=== PATIENT | male | born 1975 ===

== ENCOUNTER 2024-06-28 07:00 | Day surgery (SDC) | payer BC ==
[2024-06-27 12:19] LABS: Absolute Basophils 0.1 K/uL (0-0.5); Absolute Eosinophils 0.1 K/uL (0-0.5); Absolute Lymphocytes (CBC) 2.2 K/uL (0.7-4.9); Absolute Neutrophil 7.9 K/uL (1.8-8.0); Basophils % 0.6 % (0-1.3); Eosinophils % 1.3 % (0-4.4); Hematocrit 47.1 % (39.6-49.0); Hemoglobin 15.7 g/dL (13.6-17.9); Lymphocytes % 19.2 % (15.3-44.8); MCH 28.5 pg (27.0-35.0); MCHC 33.5 g/dL (32.0-36.0); MCV 85.3 fL (80-100); Monocytes % 8.6 % (3.3-12.3); Neutrophils % 70.3 % (41.7-73.7); Platelets 225 thou/uL (152-406); RBC Red Blood Cell Count 5.52 M/uL (4.33-5.43); Red Cell Distribution Width 14.2 % (12.1-15.2)
[2024-06-27 12:33] LABS: PTT, Activated Partial Thromb 29.7 SECONDS (24.3-36.9); Protime INR 1.07
--- NOTE | 2024-06-27 13:39 | RAD REPORT ---
EXAMINATION: ONE VIEW CHEST XR CLINICAL INDICATION: Male, 49 years old.,CCL PREOP. Hypertension TECHNIQUE: Frontal chest projection is submitted. Examination is limited by patient positioning and t echnique. COMPARISON: No prior exam. FINDINGS: The lungs are well inflated and clear. No pneumothorax or sizable effusion. The heart is normal in s ize. Mediastinal contours are unremarkable. IMPRESSION: No suspicious intrathoracic abnormalities.
[2024-06-28] MEDS ORDERED: NA CHLORIDE 0.9% 500 ML ONE (07:01)
[2024-06-28] MEDS ORDERED: HEPARIN 10,000 UNIT/10 ML VIAL IV ONE (07:18)
[2024-06-28] MEDS ORDERED: HEPA 1000U/500MLS 2,000 UNIT/1,000 ML BAG IV ONE (07:18)
[2024-06-28] MEDS ORDERED: MIDAZOLAM HCL 2 MG/2 ML INJ ONE (07:18)
[2024-06-28] MEDS ORDERED: ATROPINE SULF 1 MG/10 ML SYR IV ONE (07:18)
[2024-06-28] MEDS ORDERED: LIDOCAINE 1% 20 ML MDV ONE (07:18)
[2024-06-28] MEDS ORDERED: CLOPIDOGREL 75 MG TABLET ONE (07:19)
[2024-06-28] MEDS ORDERED: HEPARIN 5000 UNIT/ML 1 ML VIAL ONE (07:19)
[2024-06-28] MEDS ORDERED: ASPIRIN 325 MG TAB ONE (07:20)
[2024-06-28] MEDS ORDERED: TICAGRELOR 90 MG TABLET PO ONE (07:20)
[2024-06-28] MEDS ORDERED: FENTANYL CITR 100 MCG/2 ML ONE (07:20)
[2024-06-28 07:21] VITALS: TEMP 98.3
--- NOTE | 2024-06-28 09:48 | OP ---
Date of Procedure: 06/28/2024 Surgeon: Elder Mabry Procedures Performed: 1.Left heart catheterization. 2.Selective coronary angiogram. Indication For Procedure: Shortness of breath, abnormal stress test. Complications: None. Estimated Blood Loss: Less than 50 cc. Access: Right radial, closed by TR band. Sedation Time: 20 minutes with 1 of Versed and 50 of fentanyl. Description Of Procedure: After risks, benefits, and alternatives were explained to the patient, the patient agreed to proceed with procedure and signed informed consent. The patient was brought back to the electrical laboratory technician, prepped and draped in sterile fashion. Time-out was performed. Sedation was admini stered. Next, right radial access was obtained. [place] 4 catheter was advanced over the J-wire to th e LV cavity. LVEDP was obtained. Pullback did not show any gradient. Same catheter was used for se lective angiogram of the left and right coronary systems. At the end of procedure, catheter was seda claudette over a J-wire. Sheath was removed. TR band applied. Hemostasis achieved. The patient was move d back to recovery in stable condition. Findings: 1.Left main: Normal. 2.LAD: Normal. 3.Left circ: Normal. 4.RCA: Normal. 5.LVEDP 7 mmHg. Assessment And Plan: 1.Normal coronaries. 2.Normal filling pressures. Plan will be to continue medical management. RACHEAL Voice ID: [id number] Report ID: [id number]
[2024-06-28 09:58] VITALS: BP 103/66; O2SAT 93
--- NOTE | 2024-06-28 14:50 | EKG ---
Test Date: 2024-06-27 Test Time: 12:28:16 Manager Training And Development: DEMI MEASUREMENT RESULTS: Intervals: Rate: 59 [place]: 210 QRSD: 96 QT: 416 QTc: 411 [place]: P: 23 [place]: 210 QRS: -8 T: 16 INTERPRETIVE STATEMENTS: Sinus bradycardia with 1st degree AV block Otherwise normal ECG Compared to ECG 11/11/2016 17:36:02 No significant changes Electronically Signed On 06-28-24 14:46:28 CDT by Virgilio Holland
== END 2024-06-28 10:13 | disposition home or self-care (01) ==
LOC: CCL 07:00
PROVIDERS: ATTEND Internal Medicine Interventional Cardiology
DX: R94.39 Abnormal result of other cardiovascular function study (principal); R06.02 Shortness of breath; I10 Essential (primary) hypertension; I49.3 Ventricular premature depolarization; Z79.82 Long term (current) use of aspirin; Z79.899 Other long term (current) drug therapy
CPT/HCPCS: 93005; 85025; 80048; 36415; 85610; 85730; 71045; 93458; 76937; C1893; Q9966; J1644; J2003; J2250; J3010; J7040; 99152; 99153; J0461